=== PATIENT | male | born 1970 | race Hispanic/Latino ===

== ENCOUNTER 2017-12-30 11:09 | Emergency (ER) | payer OTHER ==
[2017-12-30] MEDS ORDERED: ZOFRAN IV ONE (11:57)
[2017-12-30] MEDS ORDERED: NACL 0.9% 1000 ML 1,000 ML IV ONE (11:57)
[2017-12-30] MEDS ORDERED: MORPHINE IV ONE ×2 (11:57→14:57)
--- NOTE | 2017-12-30 12:22 | Emergency Department Report ---
HPI - General Chief Complaint: Abdominal Pain Time Seen by Provider: 12/30/17 11:52 - HPI HPI: 47-year-old male presents to the emergency department with complaint of right-sided flank pain with some radiation down to the right groin and right testicle has been going on since waking up around 8 AM this morning. It is associated with some nausea, vomiting and diarrhea. He denies any fever, dysuria, hematuria. He has not taken anything for her symptoms prior to presentation. He has a history of [id number] diabetes and high blood pressure. No recent travel or sick contacts at home. ED Past Medical Hx - Past Medical History Previous Medical History?: Yes Hx Hypertension: Yes (05/15/1986) Hx Diabetes: Yes (type 2) - Surgical History Past Surgical History?: Yes Additional Surgical History: rotator cuff and bicep repair right arm - Social History Smoking Status: Light Tobacco Smoker Substance Use Type: Alcohol - Medications Home Medications: Home Medications Medication Instructions Recorded Confirmed Last Taken Type Canagliflozin (Nf) [Invokana] 100 mg PO QDAY 07/26/13 07/26/13 07/24/13 07:00 History Metformin HCl 500 mg PO BID 07/26/13 07/26/13 07/24/13 18:00 History Multivitamin [Multi-Vitamin Daily] 1 tab PO QDAY 07/26/13 07/26/13 07/25/13 07: 00 History Nebivolol (Nf) [Bystolic (Nf)] 10 mg PO QDAY 07/26/13 07/26/13 07/26/13 05:00 History amLODIPine/VALSARTAN [Exforge 1 tab PO QDAY 07/26/13 07/26/13 07/25/13 19:30 History 10-320 mg Tablet] Ciprofloxacin HCl [Cipro] 500 mg PO BID #10 tablet 12/30/17 Unknown Rx HYDROcodone/APAP 5-325 [[place] 1 each PO Q6HR PRN #10 tablet 12/30/17 Unknown Rx 5/325] Ibuprofen [Ibu] 800 mg PO TID PRN #20 tablet 12/30/17 Unknown Rx Tamsulosin HCl [Flomax] 0.4 mg PO QDAY #5 cap.er.24h 12/30/17 Unknown Rx ED Review of Systems ROS: Stated complaint: N/V DIAHRREA Other details as noted in HPI Comment: All other systems reviewed and negative Constitutional: denies: chills, fever Eyes: denies: eye pain, eye discharge, vision change ENT: denies: ear pain, throat pain Respiratory: denies: cough, shortness of breath, wheezing Cardiovascular: denies: chest pain, palpitations Gastrointestinal: abdominal pain, nausea, vomiting, diarrhea Genitourinary: testicular pain. denies: dysuria, discharge Musculoskeletal: denies: back pain, joint swelling, arthralgia Skin: denies: rash, lesions Neurological: denies: headache, weakness, paresthesias Physical Exam - Physical Exam Vital Signs: Vital Signs 12/30/17 12/30/17 11:43 12:03 Temperature 97.6 F Pulse Rate 74 Respiratory 18 18 Rate Blood Pressure 136/72 O2 Sat by Pulse 94 99 Oximetry Physical Exam: GENERAL: The patient is well-developed well-nourished. Patient appears very uncomfortable secondary to his right flank pain. HENT: Normocephalic. Atraumatic. Patient has moist mucous membranes. EYES: Extraocular motions are intact. NECK: Supple. Trachea is midline. CHEST/LUNGS: Clear to auscultation. There is no respiratory distress noted. HEART/CARDIOVASCULAR: Regular. There is no tachycardia. There is no murmur. ABDOMEN: Abdomen is soft. Unable to reproduce right abdominal or flank pain to palpation. No guarding. Patient has normal bowel sounds. There is no abdominal distention. SKIN: Skin is warm and dry. NEURO: The patient is awake, alert, and oriented. The patient is cooperative. The patient has no focal neurologic deficits. The patient has normal speech. MUSCULOSKELETAL: There is no tenderness or deformity. There is no limitation range of motion. There is no evidence of acute injury. BACK: Right CVA tenderness to palpation. : No abnormalities seen to the penis, scrotum or testicles. No tenderness palpation of the scrotum or testicle. ED Course Vital Signs 12/30/17 12/30/17 11:43 12:03 Temperature 97.6 F Pulse Rate 74 Respiratory 18 18 Rate Blood Pressure 136/72 O2 Sat by Pulse 94 99 Oximetry ED Medical Decision Making - Lab Data Result diagrams: 12/30/17 12:38 12/30/17 12:38 - Radiology Data Radiology results: report reviewed EXAM: CT ABDOMEN PELVIS WO CON HISTORY: right flank pain COMPARISON: None. TECHNIQUE: Multiple contiguous axial images were obtained from the lung bases to the pubic symphysis without administration of IV contrast. Reformatted sagittal and coronal images were available for review. FINDINGS: Lung bases: Normal. Visualized heart and mediastinum: Normal noncontrast appearance. Liver: Normal noncontrast appearance. Spleen: Normal noncontrast appearance. Pancreas: Normal noncontrast appearance. Gallbladder and Biliary Tree: No calcified gallstones. No biliary ductal dilatation. Adrenal glands: Normal. Kidneys: Mild right hydronephrosis and hydroureter. 3 millimeter calcification at the right ureterovesicular junction. Additional nonobstructive 4 millimeter calculus in the inferior pole of the right kidney.. Punctate nonobstructive calcification in the inferior pole of the left kidney. No left hydronephrosis. Bladder: Normal. Pelvic organs: Normal prostate gland and seminal vesicles. Bowel: Diverticulosis of the descending and sigmoid colon without evidence of diverticulitis. Normal appendix without surrounding inflammatory change. Normal small bowel. Peritoneum: No significant mesenteric adenopathy. No free air or free fluid. Vasculature: Abdominal aorta is normal in caliber without evidence of aneurysm. Normal noncontrast appearance of the portal venous system and the inferior vena cava. Bones and soft tissues: No suspicious osseous lesions. No acute fracture or dislocation. Small, fat containing bilateral inguinal hernias. IMPRESSION: 3 millimeter calcified stone at the right ureterovesicular junction with mild right hydronephrosis and hydroureter. Additional bilateral renal nonobstructive calculi. Diverticulosis of the descending and sigmoid colon without evidence of diverticulitis. Transcribed By: CONSTANTINE Dictated By: ANI GIL MD Electronically Authenticated By: ANI GIL MD Signed Date/Time: 12/30/17 1440 EXAM: US TESTICULAR DOPPLER COMP HISTORY: testicular pain COMPARISON: None. TECHNIQUE: Ultrasound of the scrotum was performed. FINDINGS: The right testicle measures 4.4 x 2.6 x 3 centimeters. There is normal echogenicity. There is normal arterial and venous flow to the right testicle. There is a 7 millimeter right epididymal head cyst. There is a small right hydrocele. The left testicle measures 4.3 x 2 x 3.2 centimeters. There is normal echogenicity. There is normal arterial and venous flow to the left testicle. The left epididymis is normal in appearance. There is a 5 millimeter left epididymal head cyst. There is a small left hydrocele. IMPRESSION: Small bilateral hydroceles. Bilateral epididymal head cysts. No evidence for testicular torsion. Transcribed By: CONSTANTINE Dictated By: ANI GIL MD Electronically Authenticated By: ANI GIL MD Signed Date/Time: 12/30/17 3924 - Medical Decision Making Patient presented with some acute right-sided abdominal and flank pain since waking up this morning. It was associated with some nausea and vomiting and diarrhea. Labs were mostly unremarkable. Since he did have some involvement of the testicles in terms of his pain, a testicular/scrotal ultrasound was done that did not show any signs of torsion. There was some incidental hydrocele and epididymal cyst. He then had a CT scan of the abdomen and pelvis without contrast that showed a 3 mm right UVJ stone with mild right-sided hydronephrosis. Patient was improved with some IV fluid, pain medication and nausea medication. He will go home with pain medication prescription as well as Flomax and antibiotics and a strainer for his urine. He was given a referral for urology. Vital signs stable throughout his ED course. He will return to the ER with any worsening of symptoms or any acute distress. - Differential Diagnosis nephrolithiasis, cholecystitis, cholelithiasis, testicular torsion Critical Care Time: No Critical care attestation.: If time is entered above; I have spent that time in minutes in the direct care of this critically ill patient, excluding procedure time. ED Disposition Clinical Impression: Right flank pain, Renal colic on right side, Nephrolithiasis Disposition: TO HOME OR SELFCARE Is pt being admited?: No Condition: Stable Instructions: Kidney Stones (ED), Renal Colic (ED), How to Strain Your Urine ( ED) Additional Instructions: Please follow-up with your primary care physician. I have given you a referral for a local urologist, Dr. Siddiqui, to follow up regarding your kidney stones. Return to the emergency Department with any worsening of your symptoms or any acute distress. You have been prescribed a medication that is sedating and therefore should not be taken prior to driving, working, and responsible for children and in no way should be mixed with alcohol of any quantity. Prescriptions: Ciprofloxacin HCl [Cipro] 500 mg PO BID #10 tablet HYDROcodone/APAP 5-325 [[place] 5/325] 1 each PO Q6HR PRN #10 tablet PRN Reason: Pain Ibuprofen [Ibu] 800 mg PO TID PRN #20 tablet PRN Reason: Pain , Severe (7-10) Tamsulosin HCl [Flomax] 0.4 mg PO QDAY #5 cap.er.24h Referrals: PRIMARY CARE, [Primary Care Provider] - 3-5 Days JANET SIDDIQUI MD [Staff Physician] - 3-5 Days Time of Disposition: 16:18
[2017-12-30 12:57] LABS: Basophils % (Auto) 0.2 % (0.0-1.8); Eosinophils % (Auto) 0.3 % (0.0-4.3); Hematocrit 46.8 % (35.5-45.6); Hemoglobin 15.3 gm/dl (11.8-15.2); Lymphocytes # (Auto) 0.8 K/mm3 (1.2-5.4); Lymphocytes % (Auto) 5.4 % (13.4-35.0); Mean Corpuscular HGB Conc 33 % (32-34); Mean Corpuscular Hemoglobin 29 pg (28-32); Mean Corpuscular Volume 88 fl (84-94); Monocytes # (Auto) 0.8 K/mm3 (0.0-0.8); Monocytes % (Auto) 5.5 % (0.0-7.3); Platelet Count 283 K/mm3 (140-440); Red Blood Count 5.32 M/mm3 (3.65-5.03); Red Cell Distribution Width 12.7 % (13.2-15.2)
[2017-12-30 13:17] LABS: Albumin 4.2 g/dL (3.9-5); BUN/Creatinine Ratio 18; Blood Urea Nitrogen 16 mg/dL (9-20); Calcium 9.1 mg/dL (8.4-10.2); Hemolysis Index 167
[2017-12-30 13:23] LABS: Alanine Aminotransferase 43 units/L (7-56)
--- NOTE | 2017-12-30 14:42 | Ultrasound Report ---
FINAL REPORT EXAM: US TESTICULAR DOPPLER COMP HISTORY: testicular pain COMPARISON: None. TECHNIQUE: Ultrasound of the scrotum was performed. FINDINGS: The right testicle measures 4.4 x 2.6 x 3 centimeters. There is normal echogenicity. There is normal arterial and venous flow to the right testicle. There is a 7 millimeter right epididymal head cyst. There is a small right hydrocele. The left testicle measures 4.3 x 2 x 3.2 centimeters. There is normal echogenicity. There is normal arterial and venous flow to the left testicle. The left epididymis is normal in appearance. There is a 5 millimeter left epididymal head cyst. There is a small left hydrocele. IMPRESSION: Small bilateral hydroceles. Bilateral epididymal head cysts. No evidence for testicular torsion.
--- NOTE | 2017-12-30 14:48 | Cat Scan Report ---
FINAL REPORT EXAM: CT ABDOMEN PELVIS WO CON HISTORY: right flank pain COMPARISON: None. TECHNIQUE: Multiple contiguous axial images were obtained from the lung bases to the pubic symphysis without administration of IV contrast. Reformatted sagittal and coronal images were available for review. FINDINGS: Lung bases: Normal. Visualized heart and mediastinum: Normal noncontrast appearance. Liver: Normal noncontrast appearance. Spleen: Normal noncontrast appearance. Pancreas: Normal noncontrast appearance. Gallbladder and Biliary Tree: No calcified gallstones. No biliary ductal dilatation. Adrenal glands: Normal. Kidneys: Mild right hydronephrosis and hydroureter. 3 millimeter calcification at the right ureterovesicular junction. Additional nonobstructive 4 millimeter calculus in the inferior pole of the right kidney.. Punctate nonobstructive calcification in the inferior pole of the left kidney. No left hydronephrosis. Bladder: Normal. Pelvic organs: Normal prostate gland and seminal vesicles. Bowel: Diverticulosis of the descending and sigmoid colon without evidence of diverticulitis. Normal appendix without surrounding inflammatory change. Normal small bowel. Peritoneum: No significant mesenteric adenopathy. No free air or free fluid. Vasculature: Abdominal aorta is normal in caliber without evidence of aneurysm. Normal noncontrast appearance of the portal venous system and the inferior vena cava. Bones and soft tissues: No suspicious osseous lesions. No acute fracture or dislocation. Small, fat containing bilateral inguinal hernias. IMPRESSION: 3 millimeter calcified stone at the right ureterovesicular junction with mild right hydronephrosis and hydroureter. Additional bilateral renal nonobstructive calculi. Diverticulosis of the descending and sigmoid colon without evidence of diverticulitis.
[2017-12-30] MEDS ORDERED: ATIVAN ONE (15:46)
[2017-12-30 16:16] LABS: Bilirubin,Urine NEG (Negative); Blood,Urine MOD (Negative); Color,Urine Yellow (Yellow); Protein,Urine <15 mg/dL mg/dL (Negative); Urobilinogen,Urine < 2.0 mg/dL (<2.0)
[2017-12-30 17:06] VITALS: BP 154/96
== END 2017-12-30 17:00 | disposition home or self-care (01) ==
LOC: ED 11:09
DX: N23 Unspecified renal colic (principal); N20.0 Calculus of kidney; I10 Essential (primary) hypertension; E11.9 Type 2 diabetes mellitus without complications; F17.200 Nicotine dependence, unspecified, uncomplicated; Z79.899 Other long term (current) drug therapy
CPT/HCPCS: 36415; 74176; 80053; 81001; 85025; 93975; 96361; 96374; 96375; 96376; 99284; J2270; J2405; J7030; J2060